=== PATIENT | female | born 1975 | race Two or more races ===

== ENCOUNTER 2024-12-06 10:04 | Outpatient (CLI) | payer OTHER | END 2024-12-06 10:18 | disposition home or self-care (01) | LOC: SONOGRAMA 10:04 | PROVIDERS: ATTEND Pathology Anatomic Pathology | DX: D34 Benign neoplasm of thyroid gland (principal); D13.39 Benign neoplasm of other parts of small intestine; E04.1 Nontoxic single thyroid nodule ==